=== PATIENT | female | born 1950 ===

== ENCOUNTER 2018-02-03 00:29 | Emergency (ER) | payer MEDICARE, MEDICAID ==
[2018-02-03 00:48] VITALS: BP 153/87; PULSE 90; RESP 20; TEMP 98.6
[2018-02-03 01:19] VITALS: O2SAT 99
== END 2018-02-03 01:18 | disposition left against medical advice (07) ==
LOC: C.ER 00:29
DX: Z02.89 Encounter for other administrative examinations (principal); R07.9 Chest pain, unspecified
CPT/HCPCS: 82948; LWBS0

== ENCOUNTER 2018-02-03 13:43 | Emergency (ER) | payer MEDICARE, MEDICAID ==
[2018-02-03 14:12] VITALS: BP 153/89; PULSE 94; RESP 20; TEMP 98.1; O2SAT 98
[2018-02-03 15:13] LABS: BASO % 0.6 % (0.0-2.0); EOS # 0.1 K/uL (0.0-0.7); EOS % 1.4 % (0.0-4.0); HEMOGLOBIN 13.8 g/dL (11.0-16.0); LYMPH # 3.2 K/uL (1.0-4.3); MEAN CORPUSCULAR HEMOGLOBIN 24.1 pg (27.0-31.0); MEAN CORPUSCULAR HGB CONC 32.6 g/dL (33.0-37.0); MEAN PLATELET VOLUME 7.9 fL (7.2-11.7); MONO # 0.3 K/uL (0.0-0.8); MONO % 4.3 % (0.0-10.0); NEUT # 3.3 K/uL (1.8-7.0); NEUT % 47.7 % (50.0-75.0); NRBC % 0.1 % (0.0-2.0); RBC 5.73 Mil/uL (3.80-5.20); RED CELL DISTRIBUTION WIDTH 20.4 % (11.5-14.5)
[2018-02-03 15:21] LABS: PROTHROMBIN TIME 10.5 SECONDS (9.7-12.2)
[2018-02-03 15:25] LABS: ALB/GLOB RATIO 1.6 (1.0-2.1); ALBUMIN 4.8 g/dL (3.5-5.0); ALT/SGPT 18 U/L (9-52); AST/SGOT 12 U/L (14-36); BLOOD UREA NITROGEN 6 mg/dL (7-17); CALCIUM 9.8 mg/dl (8.6-10.4); GFR AFRICAN-AMERICAN > 60; GFR NON-AFRICAN AMERICAN > 60
[2018-02-03 15:41] LABS: CK-MB 0.58 ng/mL (0.0-3.38)
--- NOTE | 2018-02-03 15:54 | C.PDOC ---
History Of Present Illness 67 y/o female with PMHx of CAD s/p stent, presents to ED for complaints of constant chest pain associated with nausea, gzl-zasmtx-ldf-bilious-vomiting, and mild SOB that began last night. Patient states symptoms began at rest and describes pain as mid sternal and radiating to right shoulder similar to pervious MD. Patient also reports earlier today she experienced having clammy and sweaty skin. Denies fever, chills, cough, back pain, abdominal pain, or dysuria. Time Seen by Provider: 02/03/18 14:12 Chief Complaint (Nursing): Chest Pain History Per: Patient History/Exam Limitations: no limitations Onset/Duration Of Symptoms: Hrs, Persistent Current Symptoms Are (Timing): Still Present Quality: "Pain" Modifying Factors: None Exacerbating Factors: None Alleviating Factors: None Recent travel outside of the [place]: No Past Medical History Reviewed: Historical Data, Nursing Documentation, Vital Signs Vital Signs: Last Vital Signs Temp 98.1 F 02/03/18 14:02 Pulse 94 H 02/03/18 14:02 Resp 20 02/03/18 14:02 BP 153/89 H 02/03/18 14:02 Pulse Ox 98 02/03/18 16:09 - Medical History PMH: Anxiety, Bronchitis, CAD, HTN, TIA Surgical History: Cholecystectomy, Coronary Stent, Family History: States: Unknown Family Hx - Social History Hx Alcohol Use: No Hx Substance Use: No Review Of Systems Except As Marked, All Systems Reviewed And Found Negative. Constitutional: Negative for: Fever Respiratory: Negative for: Cough Physical Exam - Physical Exam Additional Physical Exam Comments: Constitutional: No acute distress. Head: Normocephalic. Atraumatic. Eyes: PERRL. ENT: Moist mucous membranes. Neck: Supple. Cardiovascular: Regular rate. Radial pulse 2+ bilaterally. Chest: No tenderness. Respiratory: Clear to auscultation bilaterally. GI: Soft. Nontender. Nondistended. Back: No CVA tenderness. Musculoskeletal: No tenderness or swelling of extremities. Skin: No rash. Neurologic: Alert, no focal deficit. ED Course And Treatment - Laboratory Results Result Diagrams: 02/03/18 15:09 02/03/18 15:09 O2 Sat by Pulse Oximetry: 98 (RA) Pulse Ox Interpretation: Normal Medical Decision Making Medical Decision Making: Administered Aspirin. Ordered CXR and blood work. Notified by RN that patient took out her own IV and walked out of the ED. Disposition - Disposition Disposition: ELOPEMENT - ER ONLY Disposition Time: 15:30 Condition: UNKNOWN Forms: [facility] (Indonesian) - Clinical Impression Clinical Impression: Chest pain - Scribe Statement The provider has reviewed the documentation as recorded by the Kinjalibmoreno Kelly All medical record entries made by the Kinjalibmoreno were at my direction and personally dictated by me. I have reviewed the chart and agree that the record accurately reflects my personal performance of the history, physical exam, medical decision making, and the department course for this patient. I have also personally directed, reviewed, and agree with the discharge instructions and disposition.
--- NOTE | 2018-02-03 16:43 | RAD ---
Chest x-ray single frontal view History: Chest pain. Comparison: 02/03/2018 Findings: Mild to moderate venous congestion. Patchy increased markings at the left lung base. Mild cardiomegaly. Degenerative changes in the spine and shoulders. Impression: Mild to moderate venous congestion. Patchy increased markings at the left lung base. Mild cardiomegaly.
--- NOTE | 2018-02-04 23:43 | CARD ---
APPROVED REPORT Date of service: 02/03/2018 EKG Measurement Heart [id number] <Conclusion> Normal sinus rhythm Cannot rule out Anterior infarct, age undetermined Abnormal ECG
--- NOTE | 2018-02-04 23:47 | CARD ---
APPROVED REPORT Date of service: 02/03/2018 EKG Measurement Heart [id number] <Conclusion> Normal sinus rhythm Nonspecific T wave abnormality Abnormal ECG
== END 2018-02-03 16:15 | disposition left against medical advice (07) ==
LOC: C.ER 13:43
DX: R07.9 Chest pain, unspecified (principal); I25.10 Atherosclerotic heart disease of native coronary artery without angina pectoris; I10 Essential (primary) hypertension; Z86.73 Personal history of transient ischemic attack (TIA), and cerebral infarction without residual deficits; Z95.5 Presence of coronary angioplasty implant and graft; Z87.891 Personal history of nicotine dependence